=== PATIENT | male | born 1980 | race Caucasian/White ===

== ENCOUNTER 2017-12-25 08:37 | Emergency (ER) | payer BC ==
[~2017-12-25] VITALS: Ht 177.8 cm; Wt 84.4 kg
[~2017-12-25 08:37] MED LIST: FLX10 PO
[2017-12-25 08:40] VITALS: TEMP 36.4; Ht 177.8 cm; Wt 84.4 kg
[2017-12-25] MEDS ORDERED: LIDOCAINE 1% BUFFERED INJ 20 ML VIAL INFIL STA (08:45)
--- NOTE | 2017-12-25 08:49 | EMERGENCY ROOM VISIT NOTE ---
History Report prepared by Yeison: Malena Rasmussen Under the Supervision of: Dr. Dejon Cruz M.D. First contact with patient: 08:42 Chief Complaint: LACERATION/CUT (SUT/DERMABOND) Stated Complaint: LT FIRST FINGER LAC Nursing Triage Summary: laceration to left pointer finger with a razor blade. History of Present Illness The patient is a 37 year old male who presents to the Emergency Room with complaints of a laceration to his left first digit that occurred about an hour prior to arrival. The patient reports he cut his knuckle with a razor blade. He states his tetanus shot is up to date. 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 A total of 6 systems reviewed and were otherwise negative. Past Medical & Surgical Medical Problems: (1) Bronchitis Family History No pertinent family history Social History Smoking Status: Current Every Day Smoker Alcohol Use: occasionally Marital Status: Current/Historical Medications Scheduled Cephalexin Monohydrate (Keflex), 1 CAP PO QID Cyclobenzaprine Hcl (Flexeril *), 5 MG PO TID PRN Miscellaneous Medications None (Patient States No Home Meds) Allergies Coded Allergies: No Known Allergies (Verified , NONE, 01/10/11) Physical Exam Vital Signs Date Time Temp Pulse Resp B/P (MAP) Pulse Ox O2 Delivery O2 Flow Rate FiO2 12/25/17 09:23 67 18 106/67 98 Room Air 12/25/17 08:40 36.4 77 18 92/62 99 Room Air Physical Exam GENERAL: Awake, alert, well-appearing, in no acute distress HENT: Normocephalic, atraumatic. Oropharynx unremarkable. EYES: Normal conjunctiva. Sclera non-icteric. NECK: Supple. No nuchal rigidity. FROM. No JVD. RESPIRATORY: Clear to auscultation. CARDIAC: Regular rate, normal rhythm. Extremities warm and well perfused. Pulses equal. ABDOMEN: Soft, non-distended. No tenderness to palpation. No rebound or guarding. No masses. RECTAL: Deferred. MUSCULOSKELETAL: Chest examination reveals no tenderness. The back is symmetrical on inspection without obvious abnormality. There is no CVA tenderness to palpation. No joint edema. EXTREMITIES: Calves are equal size bilaterally and non-tender. No edema. No discoloration. 2.6 cm laceration that is circular around left knuckle. Laceration does not appear to involve knuckle joint. NEURO: Normal sensorium. No sensory or motor deficits noted. SKIN: No rash or jaundice noted. Medical Decision & Procedures Medications Administered Medications (Trade) Dose Ordered Sig/Dell Route Start Time Stop Time Status Last Admin Dose Admin Cephalexin Monohydrate (Keflex Cap) 500 mg NOW STAT PO 12/25/17 09:10 12/25/17 09:11 DC 12/25/17 09:20 500 MG Procedure Location: left index finger at the PIP joint Total length: 2.6 cm Complexity: simple Verbal consent was obtained after the risks and benefits were explained, including but not limited to bleeding, scarring, infection, pain, and bone/joint /nerve damage. At this time, the risks of the procedure are less than the risks of NOT performing the procedure. A time out was taken and the correct patient and site identified. The skin was prepped with betadine. The target area was anesthetized with 4 ml of 1% lidocaine without epinephrine. Copious irrigation was performed using 500 cc of normal saline. The skin was re-prepped with betadine and a sterile field set. The wound was explored for foreign bodies and none found. Examination revealed no injury to deep structures such as tendons, bone, or significant blood vessels. Debridement was not performed. The wound edges were approximated using 6, 4-0 simple interrupted nylon sutures. Hemostasis and excellent approximation was achieved. Antibacterial ointment and a sterile dressing applied. Detailed wound care instructions and signs and symptoms of infection reviewed with the patient. No complications and the patient tolerated the procedure well. ED Course 0845: Past medical records reviewed. The patient was evaluated in room A3. A complete history and physical examination was performed. 0910: Upon reexamination the patient is resting comfortably. I discussed results and treatment plan with the patient. He verbalizes agreement and understanding. The patient is ready for discharge. Medical Decision This is a 37-year-old male who presents emergency department with a laceration to his left index finger at the proximal joint. Patient's tetanus is up-to- date. The laceration does not appear to involve the joint however I will place the patient on Keflex for prophylaxis. Laceration was repaired as above. Patient was in agreement with treatment plan. Medication Reconcilliation Current Medication List: was personally reviewed by me Blood Pressure Screening Patient's blood pressure: Normal blood pressure Impression Primary Impression: Laceration Scribe Attestation The scribe's documentation has been prepared under my direction and personally reviewed by me in its entirety. I confirm that the note above accurately reflects all work, treatment, procedures, and medical decision making performed by me. Departure Information Dispostion Home / Self-Care Prescriptions Cephalexin Monohydrate (Keflex) 500 Mg Cap 1 CAP PO QID for 10 Days, #40 CAP Prov: Dejon Cruz MD 12/25/17 Referrals No Doctor, Assigned (PCP) Patient Instructions My [facility] Additional Instructions Sutures out in 7-10 days You have been examined and treated today on an emergency basis only. This is not a substitute for, or an effort to provide, complete comprehensive medical care. It is impossible to recognize and treat all injuries or illnesses in a single emergency department visit. It is therefore important that you follow up closely with your PCP. Call as soon as possible for an appointment. Thank you for your time and consideration. I look forward to speaking with you again soon. Please don't hesitate to call us if you have any questions.
[2017-12-25] MEDS ORDERED: CEPH500C PO (09:10)
[2017-12-25] MEDS ORDERED: CEPHALEXIN MONOHYDRATE 250 MG CAP PO STA (09:10)
[2017-12-25 09:23] VITALS: BP 106/67; PULSE 67; O2SAT 98
== END 2017-12-25 09:28 | disposition home or self-care (01) ==
LOC: C.EDB 08:38 → C.EDA 09:28
DX: S61.211A Laceration without foreign body of left index finger without damage to nail, initial encounter (principal); W26.8XXA Contact with other sharp object(s), not elsewhere classified, initial encounter; F17.200 Nicotine dependence, unspecified, uncomplicated